=== PATIENT | male | born 1985 | race African-American/Black ===

== ENCOUNTER 2025-04-11 12:24 | Outpatient (CLI) | payer OTHER, SELFPAY ==
--- NOTE | 2025-04-11 12:35 | XRR_ITS ---
PROCEDURE INFORMATION: Exam: XR Left Shoulder Exam date and time: 04/11/2025 12:45 PM Age: 39 years old Clinical indication: Pain; Shoulder; Bilateral; Additional info: Arthrosis TECHNIQUE: Imaging protocol: Radiologic exam of the left shoulder. Views: 2 or more views. COMPARISON: No relevant prior studies available. FINDINGS: Bones/joints: The glenohumeral articulation is grossly intact. 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 There is borderline widening of the AC joint raising the question of chronic low-grade sprain. Soft tissues: No gross soft tissue abnormality. XR/XR shoulder LT min 2V* [id number] IMPRESSION: 1. No evidence of acute fracture or subluxation. 2. Borderline widening of the AC joint raising the question of chronic low-grade sprain. If there is concern for ligamentous or tendon pathology, follow-up MRI may be helpful.
--- NOTE | 2025-04-11 12:35 | XRR_ITS ---
PROCEDURE INFORMATION: Exam: XR Right Shoulder Exam date and time: 04/11/2025 12:45 PM Age: 39 years old Clinical indication: Pain; Shoulder; Bilateral; Additional info: Arthrosis TECHNIQUE: Imaging protocol: Radiologic exam of the right shoulder. Views: 2 or more views. COMPARISON: No relevant prior studies available. 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 Soft tissues: No gross soft tissue abnormality. XR/XR shoulder RT min 2V* [id number] IMPRESSION: 1. No evidence of fracture or subluxation. If there is concern for labral, muscle or tendon pathology, follow-up outpatient MRI may be helpful.
[2025-04-11 13:46] LABS: Hematocrit 43.8 % (37-53); Hemoglobin 14.80 g/dL (11.27-16.99); Mean Corpuscular HGB Conc 33.8 g/dL (30-55); Mean Corpuscular Hemoglobin 31.0 pg (27-33); Mean Corpuscular Volume 91.6 fl (82-101); Nucleated Red Blood Cells % 0 %; Platelet Count 291 10^3/cmm (157-399); Red Blood Count 4.78 10^6/uL (3.85-5.65); White Blood Count 4.38 10^3/uL (3.29-11.43)
[2025-04-11 14:01] LABS: Estmated Average Glucose 111; Hemoglobin A1C 5.5 % (4.0-6.0)
[2025-04-11 14:32] LABS: Alanine Aminotransferase 14 U/L (0-41); Albumin Level 4.8 g/dL (3.5-5.2); Alkaline Phosphatase 75 U/L (40-130); Anion Gap 15.8 (5-19); Aspartate Amino Transferase 15 U/L (0-40); Blood Urea Nitrogen 19 mg/dL (6-20); Calcium 9.6 mg/dL (8.5-10.5); Carbon Dioxide 25 mmol/L (22-29); Chloride 102 mmol/L (98-107); Cholesterol 149 mg/dL (0-200); Free T4 Free Thyroxine 1.38 ng/dL (0.82-1.77); Globulin 2.7 g/dL (1.3-4.6); Glucose 134 mg/dL (65-115); HDL Cholesterol 49 mg/dL (60-100); Osmolality Calculated 292 mOsm/kg (285-295); Potassium 3.8 mmol/L (3.5-5.1); Sodium 139 mmol/L (136-145); Thyroid Stimulating Hormone 1.58 uIU/mL (0.27-4.20); Total Protein 7.5 g/dL (6.6-8.7); Triglycerides 44 mg/dL (0-150)
== END 2025-04-11 12:25 | disposition home or self-care (01) ==
PROVIDERS: PCP Family Medicine; Visit Provider Family Medicine
DX: M19.019 Primary osteoarthritis, unspecified shoulder (principal); R73.03 Prediabetes; Z13.6 Encounter for screening for cardiovascular disorders; M19.011 Primary osteoarthritis, right shoulder; M19.012 Primary osteoarthritis, left shoulder
CPT/HCPCS: 36415; 73030; 80053; 80061; 83036; 84439; 84443; 85025

== ENCOUNTER 2025-06-03 08:04 | Outpatient (CLI) | payer OTHER, SELFPAY ==
--- NOTE | 2025-06-03 07:15 | MR_ITS ---
WS: [id number] MRI LEFT SHOULDER HISTORY: left shoulder pain/rotator cuff tear COMPARISON: None available. TECHNIQUE: Multiplanar sequences of the shoulder joint are submitted. Minimal AC joint arthritis. Small amount of fluid in the subdeltoid bursa. Mild subacromial impingement by an osteophyte from the distal undersurface of the acromion. No os acromion. Normal position of the biceps tendon in the bicipital groove. Normal position of the humeral head and the glenoid. No fracture or marrow edema. No rotator cuff tendon tear. No significant muscle atrophy or edema. Lobulated cystic mass consistent with a paralabral cyst in the spinoglenoid notch. Cyst measures 2.0 x 1.1 cm. There is a fluid track extending towards the labrum. Significant signal abnormality was involving the labrum. There is a large labral tear extending from superior to anterior. MR/MR shoulder LT wo con* [id number] IMPRESSION: 1. Small paralabral cyst cyst in the spinoglenoid notch measures 2.0 x 2.1 cm. 2. Large superior to anterior labral tear. 3. No muscle atrophy or denervation edema. 4. No rotator cuff tendon tear.
--- NOTE | 2025-06-03 08:00 | MR_ITS ---
WS: [id number] MRI RIGHT SHOULDER HISTORY: right shoulder pain/rotator cuff tear COMPARISON: Radiograph 04/11/2025 TECHNIQUE: Multiplanar sequences of the shoulder joint are submitted. Moderate AC joint arthritis. Mild synovial thickening and a small amount of reactive edema in the distal clavicle and adjacent acromion. There is mild encroachment upon the supraspinatus. No significant subacromial impingement. There is a small enthesopathy measuring 4 mm along the distal undersurface of the acromion. No os acromion. Normal position of the biceps tendon. No rotator cuff muscle atrophy or edema. No tendon tears identified or significant tendinopathy. Very minimal tendinopathy in the distal subscapularis tendon. There is motion and breathing artifact on this MRI. No definite labral tears are identified. There is very slight intrasubstance degeneration in the anterior superior labrum which could be the beginning of an early degenerative tear. There is a small amount of fluid in the subscapular recess. MR/MR shoulder RT wo con* [id number] IMPRESSION: 1. Moderate AC joint arthropathy. 2. Very mild tendinopathy in the distal subscapularis tendon. 3. No rotator cuff tendon tears. 4. Early intrasubstance degenerative changes in the anterior superior labrum. Cannot confirm tear at this time.
== END 2025-06-03 08:05 | disposition home or self-care (01) ==
LOC: RAD 08:05
PROVIDERS: PCP Family Medicine; Visit Provider Student in an Organized Health Care Education/Training Program
DX: M19.011 Primary osteoarthritis, right shoulder (principal); M71.312 Other bursal cyst, left shoulder; S43.432A Superior glenoid labrum lesion of left shoulder, initial encounter
CPT/HCPCS: 73221